=== PATIENT | male | born 1965 | race American Indian/Alaskan Native ===

== ENCOUNTER 2018-05-10 19:44 | Inpatient (IN) | payer OTHER ==
[2018-05-10] MEDS ORDERED: ATIVAN IV ONE (20:52)
[2018-05-10] MEDS ORDERED: NACL 0.9% 1000 ML 1,000 ML IV ONE ×3 (20:52→23:08)
[2018-05-10] MEDS ORDERED: ATIVAN IM ONE (21:00)
[2018-05-10] MEDS ORDERED: HALDOL IM ONE (21:26)
[2018-05-10 21:28] LABS: INR 1.82 (0.87-1.13); Partial Thromboplastin Time 35.9 Sec. (24.2-36.6)
[2018-05-10 21:29] LABS: Hematocrit 20.6 % (35.5-45.6); Hemoglobin 6.4 gm/dl (11.8-15.2); Mean Corpuscular HGB Conc 31 % (32-34); Mean Corpuscular Volume 75 fl (84-94); Platelet Count 147 K/mm3 (140-440); Red Blood Count 2.73 M/mm3 (3.65-5.03)
[2018-05-10] MEDS ORDERED: HALDOL ONE (21:29)
[2018-05-10 21:33] LABS: Mean Corpuscular Hemoglobin 23 pg (28-32); Red Cell Distribution Width 25.4 % (13.2-15.2)
[2018-05-10 21:37] LABS: Alanine Aminotransferase 23 units/L (7-56); Albumin 3.2 g/dL (3.9-5); BUN/Creatinine Ratio 10; Blood Urea Nitrogen 9 mg/dL (9-20); Calcium 8.5 mg/dL (8.4-10.2); Hemolysis Index 0
[2018-05-10 22:15] LABS: Anisocytosis 2+; Hypochromasia 1+; Platelet Estimate Consistent w Auto; Total Cells Counted 100
--- NOTE | 2018-05-10 22:39 | XRay Report ---
FINAL REPORT PROCEDURE: XR CHEST 1V AP TECHNIQUE: Chest radiograph anteroposterior view. CPT 80839 HISTORY: Altered Mental Status COMPARISON: No prior studies are available for comparison. FINDINGS: Heart: Normal. Mediastinum/Vessels: Normal. Lungs/Pleural space: Normal. Bony thorax: No acute osseous abnormality. Life support devices: There are monitoring devices.. IMPRESSION: No acute cardiopulmonary abnormality.
[2018-05-10] MEDS ORDERED: CEPHULAC PO ONE (22:43)
[2018-05-10] MEDS ORDERED: VANCOMYCIN IV ONE (23:09)
[2018-05-10] MEDS ORDERED: NACL 0.9% IV ONE (23:09)
--- NOTE | 2018-05-11 00:23 | Emergency Department Report ---
ED Altered Mental Status HPI - General Chief Complaint: Altered Mental Status Stated Complaint: AMS/ETOH Time Seen by Provider: 05/10/18 20:50 Source: family (girlfriend spoke to nurse by phone), EMS Mode of arrival: Stretcher Limitations: Altered Mental Status - History of Present Illness Initial Comments: Mr. Murray is a 52 yo male with hx of alcholic cirrhosis and polysubstance abuse (cocaine, alcohol) who presents with altered mental status which is new for patient. Last drink of alcohol yesterday. Patient is too altered to give hx. He only repeats the word "no". Girlfriend Sylviaclair Smith [phone] Complaint: altered mental status -: days(s) (1) Severity: severe Consistency of Symptoms: getting worse Context: alcohol abuse - Related Data Allergies Allergy/AdvReac Type Severity Reaction Status Date / Time No Known Allergies Allergy Verified 05/10/18 23:15 ED Review of Systems ROS: Stated complaint: AMS/ETOH Other details as noted in HPI Comment: Unobtainable due to pts medical conditions ED Past Medical Hx - Past Medical History Hx Hypertension: Yes Hx Liver Disease: Yes Additional medical history: hx ETOH - Social History Smoking Status: Unknown if ever smoked Substance Use Type: Alcohol ED Physical Exam - General Limitations: Altered Mental Status General appearance: alert, other (tremulous, appears dazed confused, will make eye contact and repeat the word "no") - Head Head exam: Present: atraumatic, normocephalic - Eye Eye exam: Present: PERRL, scleral icterus Pupils: Present: normal accommodation - ENT ENT exam: Present: mucous membranes dry - Neck Neck exam: Present: normal inspection. Absent: tenderness, meningismus - Respiratory Respiratory exam: Present: normal lung sounds bilaterally. Absent: respiratory distress, wheezes, rales, rhonchi - Cardiovascular Cardiovascular Exam: Present: regular rate, tachycardia, normal heart sounds. Absent: systolic murmur, diastolic murmur - GI/Abdominal GI/Abdominal exam: Present: soft, other (periumbilical surgical scar). Absent: distended, tenderness, guarding, rebound - Neurological Exam Neurological exam: Present: other (confused but awake) - Psychiatric Psychiatric exam: Present: flat affect - Skin Skin exam: Present: other (very warm to touch) ED Course Vital Signs 09/05/10/18 05/10/18 19:56 20:01 20:08 Temperature 98.7 F 98.4 F Pulse Rate 119 H 117 H Respiratory 16 16 Rate Blood Pressure 150/74 Blood Pressure 150/74 [Right] O2 Sat by Pulse 100 100 100 Oximetry 05/10/18 05/10/18 05/10/18 20:13 20:15 20:30 Temperature Pulse Rate 124 H 113 H Respiratory 21 24 20 Rate Blood Pressure 162/67 Blood Pressure [Right] O2 Sat by Pulse 62 L Oximetry 05/10/18 05/10/18 05/10/18 20:45 21:00 21:15 Temperature Pulse Rate 115 H 117 H 131 H Respiratory 16 17 20 Rate Blood Pressure 154/61 169/81 169/81 Blood Pressure [Right] O2 Sat by Pulse 100 100 Oximetry 05/10/18 05/10/18 05/10/18 21:30 21:47 22:01 Temperature Pulse Rate 116 H 98 H 102 H Respiratory 14 11 L 14 Rate Blood Pressure 153/68 153/68 153/68 Blood Pressure [Right] O2 Sat by Pulse Oximetry 05/10/18 05/10/18 05/10/18 22:15 22:31 22:45 Temperature Pulse Rate 106 H 86 84 Respiratory 13 11 L 13 Rate Blood Pressure 153/68 169/81 169/81 Blood Pressure [Right] O2 Sat by Pulse 100 100 100 Oximetry 05/10/18 05/10/18 05/10/18 23:01 23:15 23:31 Temperature Pulse Rate 80 105 H 75 Respiratory 12 13 12 Rate Blood Pressure 169/81 169/81 169/81 Blood Pressure [Right] O2 Sat by Pulse 100 100 100 Oximetry 05/10/18 23:45 Temperature Pulse Rate 80 Respiratory 13 Rate Blood Pressure 169/81 Blood Pressure [Right] O2 Sat by Pulse 100 Oximetry - Lab Data Result diagrams: 05/10/18 21:06 05/10/18 21:06 Lab Results 05/10/18 05/10/18 05/10/18 Range/Units 21:06 21:06 21:06 WBC 4.1 L (4.5-11.0) K/mm3 RBC 2.73 L (3.65-5.03) M/mm3 Hgb 6.4 L (11.8-15.2) gm/dl Hct 20.6 L (35.5-45.6) % MCV 75 L (84-94) fl MCH 23 L (28-32) pg MCHC 31 L (32-34) % RDW 25.4 H (13.2-15.2) % Plt Count 147 (140-440) K/mm3 Lymph % (Auto) Communications Assistant Kinney % (Auto) Communications Assistant Eos % (Auto) Communications Assistant Baso % (Auto) Communications Assistant Lymph # Communications Assistant Kinney # Communications Assistant Eos # Communications Assistant Baso # Communications Assistant Add Manual Diff Complete Total Counted 100 Seg Neutrophils % Communications Assistant Seg Neuts % (Manual) 84.0 H (40.0-70.0) % Band Neutrophils % 0 % Lymphocytes % (Manual) 10.0 L (13.4-35.0) % Reactive Lymphs % (Man) 0 % Monocytes % (Manual) 2.0 (0.0-7.3) % Eosinophils % (Manual) 1.0 (0.0-4.3) % Basophils % (Manual) 2.0 H (0.0-1.8) % Metamyelocytes % 0 % Myelocytes % 1.0 % Promyelocytes % 0 % Blast Cells % 0 % Nucleated RBC % Not Reportable Seg Neutrophils # Communications Assistant Seg Neutrophils # Man 3.4 (1.8-7.7) K/mm3 Band Neutrophils # 0.0 K/mm3 Lymphocytes # (Manual) 0.4 L (1.2-5.4) K/mm3 Abs React Lymphs (Man) 0.0 K/mm3 Monocytes # (Manual) 0.1 (0.0-0.8) K/mm3 Eosinophils # (Manual) 0.0 (0.0-0.4) K/mm3 Basophils # (Manual) 0.1 (0.0-0.1) K/mm3 Metamyelocytes # 0.0 K/mm3 Myelocytes # 0.0 K/mm3 Promyelocytes # 0.0 K/mm3 Blast Cells # 0.0 K/mm3 WBC Morphology Not Reportable Hypersegmented Neuts Not Reportable Hyposegmented Neuts Not Reportable Hypogranular Neuts Not Reportable Smudge Cells Not Reportable Toxic Granulation Not Reportable Toxic Vacuolation Not Reportable Dohle Bodies Not Reportable Pelger-Huet Anomaly Not Reportable Amada Rods Not Reportable Platelet Estimate Consistent w auto Clumped Platelets Not Reportable Plt Clumps, EDTA Not Reportable Large Platelets Not Reportable Giant Platelets Not Reportable Platelet Satelliting Not Reportable Plt Morphology Comment Not Reportable RBC Morphology Not Reportable Dimorphic RBCs Not Reportable Polychromasia Not Reportable Hypochromasia 1+ Poikilocytosis Not Reportable Anisocytosis 2+ Microcytosis Not Reportable Macrocytosis Not Reportable Spherocytes Not Reportable Pappenheimer Bodies Not Reportable Sickle Cells Not Reportable Target Cells Not Reportable Tear Drop Cells Not Reportable Ovalocytes Not Reportable Helmet Cells Not Reportable Rodríguez-Paradis Bodies Not Reportable [place] Rings Not Reportable Elvia Cells Not Reportable Bite Cells Not Reportable Crenated Cell Not Reportable Elliptocytes Not Reportable Acanthocytes (Spur) Not Reportable Rouleaux Not Reportable Hemoglobin C Crystals Not Reportable Schistocytes Not Reportable Malaria parasites Not Reportable Raoul Bodies Not Reportable Hem Pathologist Commnt No PT 21.6 H (12.2-14.9) Sec. INR 1.82 H (0.87-1.13) APTT 35.9 (24.2-36.6) Sec. Sodium 139 (137-145) mmol/L Potassium 3.7 (3.6-5.0) mmol/L Chloride 107.2 H (98-107) mmol/L Carbon Dioxide 17 L (22-30) mmol/L Anion Gap 19 mmol/L BUN 9 (9-20) mg/dL Creatinine 0.9 (0.8-1.5) mg/dL Estimated GFR > 60 ml/min BUN/Creatinine Ratio 10 % Glucose 129 H (75-100) mg/dL Lactic Acid (0.7-2.0) mmol/L Calcium 8.5 (8.4-10.2) mg/dL Total Bilirubin 4.20 H (0.1-1.2) mg/dL AST 55 H (5-40) units/L ALT 23 (7-56) units/L Alkaline Phosphatase 153 H (35-129) units/L Ammonia (25-60) umol/L Total Creatine Kinase 489 H (55-170) units/L Troponin T < 0.010 (0.00-0.029) ng/mL Total Protein 8.7 H (6.3-8.2) g/dL Albumin 3.2 L (3.9-5) g/dL Albumin/Globulin Ratio 0.6 % TSH (0.270-4.200) mlU/mL Salicylates (2.8-20.0) mg/dL Acetaminophen (10.0-30.0) ug/mL Plasma/Serum Alcohol (0-0.07) % 05/10/18 05/10/18 05/10/18 Range/Units 21:06 21:06 21:06 WBC (4.5-11.0) K/mm3 RBC (3.65-5.03) M/mm3 Hgb (11.8-15.2) gm/dl Hct (35.5-45.6) % MCV (84-94) fl MCH (28-32) pg MCHC (32-34) % RDW (13.2-15.2) % Plt Count (140-440) K/mm3 Lymph % (Auto) Kinney % (Auto) Eos % (Auto) Baso % (Auto) Lymph # Kinney # Eos # Baso # Add Manual Diff Total Counted Seg Neutrophils % Seg Neuts % (Manual) (40.0-70.0) % Band Neutrophils % % Lymphocytes % (Manual) (13.4-35.0) % Reactive Lymphs % (Man) % Monocytes % (Manual) (0.0-7.3) % Eosinophils % (Manual) (0.0-4.3) % Basophils % (Manual) (0.0-1.8) % Metamyelocytes % % Myelocytes % % Promyelocytes % % Blast Cells % % Nucleated RBC % Seg Neutrophils # Seg Neutrophils # Man (1.8-7.7) K/mm3 Band Neutrophils # K/mm3 Lymphocytes # (Manual) (1.2-5.4) K/mm3 Abs React Lymphs (Man) K/mm3 Monocytes # (Manual) (0.0-0.8) K/mm3 Eosinophils # (Manual) (0.0-0.4) K/mm3 Basophils # (Manual) (0.0-0.1) K/mm3 Metamyelocytes # K/mm3 Myelocytes # K/mm3 Promyelocytes # K/mm3 Blast Cells # K/mm3 WBC Morphology Hypersegmented Neuts Hyposegmented Neuts Hypogranular Neuts Smudge Cells Toxic Granulation Toxic Vacuolation Dohle Bodies Pelger-Huet Anomaly Amada Rods Platelet Estimate Clumped Platelets Plt Clumps, EDTA Large Platelets Giant Platelets Platelet Satelliting Plt Morphology Comment RBC Morphology Dimorphic RBCs Polychromasia Hypochromasia Poikilocytosis Anisocytosis Microcytosis Macrocytosis Spherocytes Pappenheimer Bodies Sickle Cells Target Cells Tear Drop Cells Ovalocytes Helmet Cells Rodríguez-Paradis Bodies [place] Rings [place] Cells Bite Cells Crenated Cell Elliptocytes Acanthocytes (Spur) Rouleaux Hemoglobin C Crystals Schistocytes Malaria parasites Raoul Bodies Hem Pathologist Commnt PT (12.2-14.9) Sec. INR (0.87-1.13) APTT (24.2-36.6) Sec. Sodium (137-145) mmol/L Potassium (3.6-5.0) mmol/L Chloride (98-107) mmol/L Carbon Dioxide (22-30) mmol/L Anion Gap mmol/L BUN (9-20) mg/dL Creatinine (0.8-1.5) mg/dL Estimated GFR ml/min BUN/Creatinine Ratio % Glucose (75-100) mg/dL Lactic Acid 4.30 H* (0.7-2.0) mmol/L Calcium (8.4-10.2) mg/dL Total Bilirubin (0.1-1.2) mg/dL AST (5-40) units/L ALT (7-56) units/L Alkaline Phosphatase (35-129) units/L Ammonia 204.0 H (25-60) umol/L Total Creatine Kinase (55-170) units/L Troponin T (0.00-0.029) ng/mL Total Protein (6.3-8.2) g/dL Albumin (3.9-5) g/dL Albumin/Globulin Ratio % TSH 2.570 (0.270-4.200) mlU/mL Salicylates (2.8-20.0) mg/dL Acetaminophen (10.0-30.0) ug/mL Plasma/Serum Alcohol (0-0.07) % 05/10/18 05/10/18 05/10/18 Range/Units 21:06 21:06 21:06 WBC (4.5-11.0) K/mm3 RBC (3.65-5.03) M/mm3 Hgb (11.8-15.2) gm/dl Hct (35.5-45.6) % MCV (84-94) fl MCH (28-32) pg MCHC (32-34) % RDW (13.2-15.2) % Plt Count (140-440) K/mm3 Lymph % (Auto) Kinney % (Auto) Eos % (Auto) Baso % (Auto) Lymph # Kinney # Eos # Baso # Add Manual Diff Total Counted Seg Neutrophils % Seg Neuts % (Manual) (40.0-70.0) % Band Neutrophils % % Lymphocytes % (Manual) (13.4-35.0) % Reactive Lymphs % (Man) % Monocytes % (Manual) (0.0-7.3) % Eosinophils % (Manual) (0.0-4.3) % Basophils % (Manual) (0.0-1.8) % Metamyelocytes % % Myelocytes % % Promyelocytes % % Blast Cells % % Nucleated RBC % Seg Neutrophils # Seg Neutrophils # Man (1.8-7.7) K/mm3 Band Neutrophils # K/mm3 Lymphocytes # (Manual) (1.2-5.4) K/mm3 Abs React Lymphs (Man) K/mm3 Monocytes # (Manual) (0.0-0.8) K/mm3 Eosinophils # (Manual) (0.0-0.4) K/mm3 Basophils # (Manual) (0.0-0.1) K/mm3 Metamyelocytes # K/mm3 Myelocytes # K/mm3 Promyelocytes # K/mm3 Blast Cells # K/mm3 WBC Morphology Hypersegmented Neuts Hyposegmented Neuts Hypogranular Neuts Smudge Cells Toxic Granulation Toxic Vacuolation Dohle Bodies Pelger-Huet Anomaly Amada Rods Platelet Estimate Clumped Platelets Plt Clumps, EDTA Large Platelets Giant Platelets Platelet Satelliting Plt Morphology Comment RBC Morphology Dimorphic RBCs Polychromasia Hypochromasia Poikilocytosis Anisocytosis Microcytosis Macrocytosis Spherocytes Pappenheimer Bodies Sickle Cells Target Cells Tear Drop Cells Ovalocytes Helmet Cells Rodríguez-Paradis Bodies [place] Rings [place] Cells Bite Cells Crenated Cell Elliptocytes Acanthocytes (Spur) Rouleaux Hemoglobin C Crystals Schistocytes Malaria parasites Raoul Bodies Hem Pathologist Commnt PT (12.2-14.9) Sec. INR (0.87-1.13) APTT (24.2-36.6) Sec. Sodium (137-145) mmol/L Potassium (3.6-5.0) mmol/L Chloride (98-107) mmol/L Carbon Dioxide (22-30) mmol/L Anion Gap mmol/L BUN (9-20) mg/dL Creatinine (0.8-1.5) mg/dL Estimated GFR ml/min BUN/Creatinine Ratio % Glucose (75-100) mg/dL Lactic Acid (0.7-2.0) mmol/L Calcium (8.4-10.2) mg/dL Total Bilirubin (0.1-1.2) mg/dL AST (5-40) units/L ALT (7-56) units/L Alkaline Phosphatase (35-129) units/L Ammonia (25-60) umol/L Total Creatine Kinase (55-170) units/L Troponin T (0.00-0.029) ng/mL Total Protein (6.3-8.2) g/dL Albumin (3.9-5) g/dL Albumin/Globulin Ratio % TSH (0.270-4.200) mlU/mL Salicylates < 0.3 L (2.8-20.0) mg/dL Acetaminophen < 5.0 L (10.0-30.0) ug/mL Plasma/Serum Alcohol < 0.01 (0-0.07) % 05/10/18 05/10/18 Range/Units 22:09 23:12 WBC (4.5-11.0) K/mm3 RBC (3.65-5.03) M/mm3 Hgb (11.8-15.2) gm/dl Hct (35.5-45.6) % MCV (84-94) fl MCH (28-32) pg MCHC (32-34) % RDW (13.2-15.2) % Plt Count (140-440) K/mm3 Lymph % (Auto) Kinney % (Auto) Eos % (Auto) Baso % (Auto) Lymph # Kinney # Eos # Baso # Add Manual Diff Total Counted Seg Neutrophils % Seg Neuts % (Manual) (40.0-70.0) % Band Neutrophils % % Lymphocytes % (Manual) (13.4-35.0) % Reactive Lymphs % (Man) % Monocytes % (Manual) (0.0-7.3) % Eosinophils % (Manual) (0.0-4.3) % Basophils % (Manual) (0.0-1.8) % Metamyelocytes % % Myelocytes % % Promyelocytes % % Blast Cells % % Nucleated RBC % Seg Neutrophils # Seg Neutrophils # Man (1.8-7.7) K/mm3 Band Neutrophils # K/mm3 Lymphocytes # (Manual) (1.2-5.4) K/mm3 Abs React Lymphs (Man) K/mm3 Monocytes # (Manual) (0.0-0.8) K/mm3 Eosinophils # (Manual) (0.0-0.4) K/mm3 Basophils # (Manual) (0.0-0.1) K/mm3 Metamyelocytes # K/mm3 Myelocytes # K/mm3 Promyelocytes # K/mm3 Blast Cells # K/mm3 WBC Morphology Hypersegmented Neuts Hyposegmented Neuts Hypogranular Neuts Smudge Cells Toxic Granulation Toxic Vacuolation Dohle Bodies Pelger-Huet Anomaly Amada Rods Platelet Estimate Clumped Platelets Plt Clumps, EDTA Large Platelets Giant Platelets Platelet Satelliting Plt Morphology Comment RBC Morphology Dimorphic RBCs Polychromasia Hypochromasia Poikilocytosis Anisocytosis Microcytosis Macrocytosis Spherocytes Pappenheimer Bodies Sickle Cells Target Cells Tear Drop Cells Ovalocytes Helmet Cells Rodríguez-Paradis Bodies [place] Rings Elvia Cells Bite Cells Crenated Cell Elliptocytes Acanthocytes (Spur) Rouleaux Hemoglobin C Crystals Schistocytes Malaria parasites Raoul Bodies Hem Pathologist Commnt PT (12.2-14.9) Sec. INR (0.87-1.13) APTT (24.2-36.6) Sec. Sodium (137-145) mmol/L Potassium (3.6-5.0) mmol/L Chloride (98-107) mmol/L Carbon Dioxide (22-30) mmol/L Anion Gap mmol/L BUN (9-20) mg/dL Creatinine (0.8-1.5) mg/dL Estimated GFR ml/min BUN/Creatinine Ratio % Glucose (75-100) mg/dL Lactic Acid 4.40 H* 2.60 H* (0.7-2.0) mmol/L Calcium (8.4-10.2) mg/dL Total Bilirubin (0.1-1.2) mg/dL AST (5-40) units/L ALT (7-56) units/L Alkaline Phosphatase (35-129) units/L Ammonia (25-60) umol/L Total Creatine Kinase (55-170) units/L Troponin T (0.00-0.029) ng/mL Total Protein (6.3-8.2) g/dL Albumin (3.9-5) g/dL Albumin/Globulin Ratio % TSH (0.270-4.200) mlU/mL Salicylates (2.8-20.0) mg/dL Acetaminophen (10.0-30.0) ug/mL Plasma/Serum Alcohol (0-0.07) % 05/11/18 00:34 Time obtained 2008 Sinus tachycardia rate 120 bpm normal axis normal intervals no ST-T signs ischemia positive LVH - Radiology Data Radiology results: report reviewed CT head without acute process Portable chest x-ray without acute process - Medical Decision Making Acute hepatic encephalopathy and alcohol withdrawal admitted in fair condition. Elevated lactate without elevated white count, however pancytopenia is to be expected with alcohol cirrhosis. Did cover for possible sepsis with appropriate IV fluid therapy and broad-spectrum antibiotics, no notable tenderness or significant ascites to suggest peritonitis Critical Care Time: Yes Critical care time in (mins) excluding proc time.: 40 Critical care attestation.: If time is entered above; I have spent that time in minutes in the direct care of this critically ill patient, excluding procedure time. 40 minutes of critical care time excluding procedures were used in the care of the patient. Patient required multiple assessments and interventions. I reviewed the electronic medical record, labs and imaging. ED Disposition Clinical Impression: Hepatic encephalopathy, Alcoholic cirrhosis, Alcohol withdrawal, Lactic acid acidosis, Cocaine abuse Disposition: OP ADMIT IP TO THIS HOSP Is pt being admited?: No Does the pt Need Aspirin: No Condition: Stable
[2018-05-11] MEDS ORDERED: ATIVAN IV PRN ×3 (00:29)
[2018-05-11] MEDS ORDERED: VITAMIN B-1 100 MG, FOLVITE 1 MG, INFUVITE 10 ML in NACL 0.9% 1000 ML 1,000 ML IV ONE (00:31)
[2018-05-11] MEDS ORDERED: ZOFRAN IV PRN (00:32)
[2018-05-11] MEDS ORDERED: NACL 0.9% 500 ML 500 ML IV ONE (00:33)
[2018-05-11] MEDS: MAXIPIME/NS 2 GM/100 ML 2 GM/100 ML BAG IV SCH ×4 (01:14→21:48)
[2018-05-11] MEDS ORDERED: CEPHULAC ONE (01:24)
--- NOTE | 2018-05-11 02:03 | Cat Scan Report ---
FINAL REPORT EXAM: CT HEAD/BRAIN WO CON HISTORY: Altered Mental Status TECHNIQUE: Routine axial imaging was obtained of the brain without IV contrast FINDINGS: There is mild generalized volume loss. There is localized encephalomalacia in the right frontal lobe. There is no evidence of acute stroke or hemorrhage. The ventricular system is appropriate in size and is symmetric. The sinuses reveal mucosal thickening in the left maxillary sinus. The mastoid air cells are well pneumatized. The calvarium appears intact IMPRESSION: Mild generalized atrophy with encephalomalacia in the right frontal lobe. No evidence of acute stroke or hemorrhage. Mucosal thickening in the left maxillary sinus.
[2018-05-11 04:08] LABS: Bilirubin,Urine NEG (Negative); Blood,Urine SM (Negative); Color,Urine Yellow (Yellow); Protein,Urine <15 mg/dL mg/dL (Negative)
[2018-05-11 04:16] LABS: Amphetamine Screen,Urine PRESUMPTIVE NEGATIVE; Benzodiazepines Screen,Urine PRESUMPTIVE NEGATIVE; Cannabinoid Screen,Urine PRESUMPTIVE NEGATIVE; Cocaine Screen,Urine PRESUMPTIVE NEGATIVE; Methadone Screen,Urine PRESUMPTIVE NEGATIVE; Opiate Screen,Urine PRESUMPTIVE NEGATIVE
--- NOTE | 2018-05-11 04:35 | History and Physical Report ---
CHIEF COMPLAINT: Altered mental status. HISTORY OF PRESENT ILLNESS: The patient is a 52-year-old male with history of alcoholic cirrhosis and polysubstance abuse, notably cocaine and alcohol, presenting with altered mental status and the patient said he had last alcohol drink 3 days before presentation. The patient could not give good history because of change in mental status. There was no history of chest pain, shortness of breath, nausea, or vomiting. PAST MEDICAL HISTORY: Pertinent for hypertension, liver disease, alcohol abuse. PAST SURGICAL HISTORY: Unremarkable. FAMILY HISTORY: Family history is noncontributory. SOCIAL HISTORY: The patient drinks alcohol, does not smoke and uses illicit drugs, notably cocaine. MEDICATIONS: The patient's home medications are not known at this time. ALLERGIES: There are no known drug allergies. REVIEW OF SYSTEMS: CONSTITUTIONAL: There is no fever, no chills, no diaphoresis. HEENT: There is no headache or sore throat. CARDIOVASCULAR SYSTEM: There is no chest pain or orthopnea. RESPIRATORY: There is no shortness of breath or cough. GASTROINTESTINAL SYSTEM: There is no nausea, no vomiting, no abdominal pain, diarrhea, or constipation. NEUROLOGIC: Change in mental status noted. MUSCULOSKELETAL SYSTEM: There is no joint pain or swelling. DERMATOLOGICAL SYSTEM: There is no skin rash or itching. GENITOURINARY SYSTEM: There is no dysuria, hematuria, or flank pain. Rest of system review is normal. PHYSICAL EXAMINATION: GENERAL: At the time of exam, the patient was found to be lethargic, arousable, and not in acute distress. VITAL SIGNS: At the initial time of presentation shows temperature of 98.7 degrees Fahrenheit, pulse of 119, respiration 16, blood pressure 150/74, O2 sat of 100% on room air. HEENT: Showed pupils to be equal, round, reactive to light and accommodating. There is presence of scleral jaundice. Oral mucosa looks moist. NECK: Neck is supple with no JVD or carotid bruit. CARDIOVASCULAR SYSTEM: Showed normal first and second heart sounds with no gallops or murmurs. RESPIRATORY SYSTEM: Show good air entry on both sides of the lungs with no abnormal breath sounds. GASTROINTESTINAL SYSTEM: Show abdomen to be full, soft, nontender with no organomegaly or rigidity. NEUROLOGIC: Showed patient to be lethargic, but arousable with no focal deficit elicited. MUSCULOSKELETAL SYSTEM: Show no joint swelling or tenderness. DERMATOLOGICAL SYSTEM: Show no skin rash. GENITOURINARY: Showing no costovertebral angle tenderness. PERTINENT LABORATORY DATA AND IMAGING STUDIES: The patient had a CT of the head without contrast done that shows mild generalized atrophy with encephalomalacia in the right frontal lobe with no evidence of acute stroke or hemorrhage. There is finding of mucosal thickening in the left maxillary sinus. Also, the patient had chest x-ray done that shows no acute cardiopulmonary abnormality. Lab results, patient has CBC done that shows a low WBC of 4.1 with low hemoglobin of 6.4 and low hematocrit of 20.6 with low MCV of 75. The patient's CBC differential shows elevated segmented neutrophil of 84. The patient's coagulation studies show high PT of 21.6 with high INR of 1.82. It is not certain whether patient is on Coumadin since patient's home medications cannot be ascertained. The patient's chemistry shows normal sodium and potassium with high chloride of 107 and low CO2 of 17 with high lactic acid level of 2.4. The patient's total bilirubin level is high with a value of 4.2. Liver transaminases show high AST of 55 with normal ALT of 23 consistent with alcohol abuse. The patient's ammonia level is high with a value of 204 and total creatinine kinase level is high with a value of 489. Troponin level was normal. Toxicology screen showed normal salicylate and Tylenol level with unremarkable alcohol level. DIAGNOSES: 1. Altered mental status. 2. Hepatic encephalopathy. 3. Alcohol withdrawal syndrome. 4. Anemia. 5. Lactic acidosis. PLAN: 1. The patient will be admitted to medical floor on telemetry. 2. The patient will have blood order for type and screen and a transfusion of 2 units of packed red blood after typing and screening. 3. The patient will have hemoglobin and hematocrit checked q. 6 hours x 2 more levels and will have lactic acid level checked q. 4 hours x 2 more levels. 4. The patient will have ammonia level checked this morning. 5. The patient will be on CIWA protocol using IV Ativan. 6. The patient will be on lactulose 20 gm by mouth twice daily. 7. The patient will be on IV banana bag given 1 time and will be on IV Zofran 4 mg every 8 hours as needed for nausea and vomiting. 8. The patient's home medications will be started when they are known and reconciled. 9. The patient will have a Gastroenterology consult with [facility] for management of cirrhosis and hepatic encephalopathy. JOB# [id number] OCN/NTS
--- NOTE | 2018-05-11 08:09 | Event Note ---
Date: 05/11/18 Patient seen and evaluated ,medical records reviewed. Admitted with hepatic encephalopathy,severe cirrhosis, polysubstance abuse ,coagulopathy and sever anemia. Advised to transfuse 2 units PRBC,GI evaluation CIWA protocols. Agree with the current management. f/u GI evaluation and recommendations. Patient needs Alcohol and drug rehabilitation when medically stable Plan of care d/w at the bed side.
[2018-05-11] MEDS ORDERED: LASIX IV ONE (08:14)
[2018-05-11 09:40] LABS: Lipase 94 units/L (13-60)
--- NOTE | 2018-05-11 09:59 | Gastroenterology Consultation ---
History of Present Illness - Reason for Consult Consult date: 05/11/18 cirrhosis, hepatic encephalopathy Requesting physician: HARINDER GARCIA - History of Present Illness Patient is a 52 y/o male with PMH of HTN, alcoholic cirrhosis and polypsubstance abuse (cocaine, alcohol) who presented to ED with AMS. CT head negative for acute process. Upon admission, ammonia level was found to be elevated and he was admitted for hepatic encephalopathy to which GI has been consulted. This morning patient was resting in bed w/o acute distress but noted to be lethargic and unable to provide history. No family at bedside. History obtained via chart review. According to chart review, his last drink of alcohol was yesterday. Amount of daily consumption is unknown. No evidence of abd distention, abd pain, or N/V. No BM today or active signs of bleeding per nursing. NG tube to LIS w/o drainage. Past History Past Medical History: hypertension, liver disease (alcoholic cirrhosis) Past Surgical History: Other (unknown) Social history: alcohol abuse, other (substance abuse (cocaine)) Medications and Allergies Allergies Allergy/AdvReac Type Severity Reaction Status Date / Time No Known Allergies Allergy Verified 05/10/18 23:15 Home Medications Medication Instructions Recorded Confirmed Last Taken Type No Known Home Medications [No 05/11/18 05/11/18 Unknown History Reported Home Medications] Active Meds: Active Medications Cefepime HCl (Maxipime/Ns 2 Gm/100 Ml) 2 gm in 100 mls @ 200 mls/hr IV Q8HR RYDER ; Protocol Last Admin: 05/11/18 07:19 Dose: 200 mls/hr Lactulose (Cephulac) 20 gm PO BID RYDER Lorazepam (Ativan) 2 mg IV Q1HR PRN PRN Reason: CIWA-Ar 8-15 Lorazepam (Ativan) 4 mg IV Q1HR PRN PRN Reason: CIWA-Ar 16-25 Last Admin: 05/11/18 02:51 Dose: 4 mg Lorazepam (Ativan) 4 mg IV Q15MIN PRN PRN Reason: CIWA-Ar >25 Ondansetron HCl (Zofran) 4 mg IV Q8H PRN PRN Reason: Nausea And Vomiting Review of Systems - Review of Systems ROS unobtainable: due to mental status Exam - Constitutional Vital Signs: Temp Pulse Resp BP Pulse Ox 98.1 F 121 H 18 151/79 100 05/11/18 08:00 05/11/18 08:00 05/11/18 08:00 05/11/18 08:00 05/11/18 08:00 General appearance: no acute distress, other (lethargic) - Respiratory Respiratory: bilateral: CTA (anterior) - Cardiovascular Rhythm: other (tachycardia) - Gastrointestinal General gastrointestinal: Present: soft, non-distended, normal bowel sounds - Neurologic Neurological: other (confused) - Labs CBC & Chem 7: 05/10/18 21:06 05/10/18 21:06 Lab Results: Laboratory Results - last 24 hr 05/10/18 05/10/18 05/10/18 21:06 21:06 21:06 WBC 4.1 L RBC 2.73 L Hgb 6.4 L Hct 20.6 L MCV 75 L MCH 23 L MCHC 31 L RDW 25.4 H Plt Count 147 Lymph % (Auto) Public Weigher [place] % (Auto) Public Weigher Eos % (Auto) Public Weigher Baso % (Auto) Public Weigher Lymph # Public Weigher [place] # Public Weigher Eos # Public Weigher Baso # Public Weigher Add Manual Diff Complete Total Counted 100 Seg Neutrophils % Public Weigher Seg Neuts % (Manual) 84.0 H Band Neutrophils % 0 Lymphocytes % (Manual) 10.0 L Reactive Lymphs % (Man) 0 Monocytes % (Manual) 2.0 Eosinophils % (Manual) 1.0 Basophils % (Manual) 2.0 H Metamyelocytes % 0 Myelocytes % 1.0 Promyelocytes % 0 Blast Cells % 0 Nucleated RBC % Not Reportable Seg Neutrophils # Public Weigher Seg Neutrophils # Man 3.4 Band Neutrophils # 0.0 Lymphocytes # (Manual) 0.4 L Abs React Lymphs (Man) 0.0 Monocytes # (Manual) 0.1 Eosinophils # (Manual) 0.0 Basophils # (Manual) 0.1 Metamyelocytes # 0.0 Myelocytes # 0.0 Promyelocytes # 0.0 Blast Cells # 0.0 WBC Morphology Not Reportable Hypersegmented Neuts Not Reportable Hyposegmented Neuts Not Reportable Hypogranular Neuts Not Reportable Smudge Cells Not Reportable Toxic Granulation Not Reportable Toxic Vacuolation Not Reportable Dohle Bodies Not Reportable Pelger-Huet Anomaly Not Reportable Amada Rods Not Reportable Platelet Estimate Consistent w auto Clumped Platelets Not Reportable Plt Clumps, EDTA Not Reportable Large Platelets Not Reportable Giant Platelets Not Reportable Platelet Satelliting Not Reportable Plt Morphology Comment Not Reportable RBC Morphology Not Reportable Dimorphic RBCs Not Reportable Polychromasia Not Reportable Hypochromasia 1+ Poikilocytosis Not Reportable Anisocytosis 2+ Microcytosis Not Reportable Macrocytosis Not Reportable Spherocytes Not Reportable Pappenheimer Bodies Not Reportable Sickle Cells Not Reportable Target Cells Not Reportable Tear Drop Cells Not Reportable Ovalocytes Not Reportable Helmet Cells Not Reportable Rodríguez-Phillips Bodies Not Reportable [place] Rings Not Reportable Elvia Cells Not Reportable Bite Cells Not Reportable Crenated Cell Not Reportable Elliptocytes Not Reportable Acanthocytes (Spur) Not Reportable Rouleaux Not Reportable Hemoglobin C Crystals Not Reportable Schistocytes Not Reportable Malaria parasites Not Reportable Raoul Bodies Not Reportable Hem Pathologist Commnt No PT 21.6 H INR 1.82 H APTT 35.9 Sodium 139 Potassium 3.7 Chloride 107.2 H Carbon Dioxide 17 L Anion Gap 19 BUN 9 Creatinine 0.9 Estimated GFR > 60 BUN/Creatinine Ratio 10 Glucose 129 H POC Glucose Lactic Acid Calcium 8.5 Total Bilirubin 4.20 H AST 55 H ALT 23 Alkaline Phosphatase 153 H Ammonia Total Creatine Kinase 489 H Troponin T < 0.010 Total Protein 8.7 H Albumin 3.2 L Albumin/Globulin Ratio 0.6 Amylase Lipase TSH Urine Color Urine Turbidity Urine pH Ur Specific Jackson Urine Protein Urine Glucose (UA) Urine Ketones Urine Blood Urine Nitrite Urine Bilirubin Urine Urobilinogen Ur Leukocyte Esterase Urine WBC (Auto) Urine RBC (Auto) U Epithel Cells (Auto) Salicylates Urine Opiates Screen Urine Methadone Screen Acetaminophen Ur Barbiturates Screen Ur Phencyclidine Scrn Ur Amphetamines Screen U Benzodiazepines Scrn Urine Cocaine Screen U Marijuana (THC) Screen Drugs of Abuse Note Plasma/Serum Alcohol Blood Type Antibody Screen Crossmatch 05/10/18 05/10/18 05/10/18 21:06 21:06 21:06 WBC RBC Hgb Hct MCV MCH MCHC RDW Plt Count Lymph % (Auto) [place] % (Auto) Eos % (Auto) Baso % (Auto) Lymph # [place] # Eos # Baso # Add Manual Diff Total Counted Seg Neutrophils % Seg Neuts % (Manual) Band Neutrophils % Lymphocytes % (Manual) Reactive Lymphs % (Man) Monocytes % (Manual) Eosinophils % (Manual) Basophils % (Manual) Metamyelocytes % Myelocytes % Promyelocytes % Blast Cells % Nucleated RBC % Seg Neutrophils # Seg Neutrophils # Man Band Neutrophils # Lymphocytes # (Manual) Abs React Lymphs (Man) Monocytes # (Manual) Eosinophils # (Manual) Basophils # (Manual) Metamyelocytes # Myelocytes # Promyelocytes # Blast Cells # WBC Morphology Hypersegmented Neuts Hyposegmented Neuts Hypogranular Neuts Smudge Cells Toxic Granulation Toxic Vacuolation Dohle Bodies Pelger-Huet Anomaly Amada Rods Platelet Estimate Clumped Platelets Plt Clumps, EDTA Large Platelets Giant Platelets Platelet Satelliting Plt Morphology Comment RBC Morphology Dimorphic RBCs Polychromasia Hypochromasia Poikilocytosis Anisocytosis Microcytosis Macrocytosis Spherocytes Pappenheimer Bodies Sickle Cells Target Cells Tear Drop Cells Ovalocytes Helmet Cells Rodríguez-Phillips Bodies [place] Rings Elvia Cells Bite Cells Crenated Cell Elliptocytes Acanthocytes (Spur) Rouleaux Hemoglobin C Crystals Schistocytes Malaria parasites Raoul Bodies Hem Pathologist Commnt PT INR APTT Sodium Potassium Chloride Carbon Dioxide Anion Gap BUN Creatinine Estimated GFR BUN/Creatinine Ratio Glucose POC Glucose Lactic Acid 4.30 H* Calcium Total Bilirubin AST ALT Alkaline Phosphatase Ammonia 204.0 H Total Creatine Kinase Troponin T Total Protein Albumin Albumin/Globulin Ratio Amylase Lipase TSH 2.570 Urine Color Urine Turbidity Urine pH Ur Specific Jackson Urine Protein Urine Glucose (UA) Urine Ketones Urine Blood Urine Nitrite Urine Bilirubin Urine Urobilinogen Ur Leukocyte Esterase Urine WBC (Auto) Urine RBC (Auto) U Epithel Cells (Auto) Salicylates Urine Opiates Screen Urine Methadone Screen Acetaminophen Ur Barbiturates Screen Ur Phencyclidine Scrn Ur Amphetamines Screen U Benzodiazepines Scrn Urine Cocaine Screen U Marijuana (THC) Screen Drugs of Abuse Note Plasma/Serum Alcohol Blood Type Antibody Screen Crossmatch 05/10/18 05/10/18 05/10/18 21:06 21:06 21:06 WBC RBC Hgb Hct MCV MCH MCHC RDW Plt Count Lymph % (Auto) [place] % (Auto) Eos % (Auto) Baso % (Auto) Lymph # [place] # Eos # Baso # Add Manual Diff Total Counted Seg Neutrophils % Seg Neuts % (Manual) Band Neutrophils % Lymphocytes % (Manual) Reactive Lymphs % (Man) Monocytes % (Manual) Eosinophils % (Manual) Basophils % (Manual) Metamyelocytes % Myelocytes % Promyelocytes % Blast Cells % Nucleated RBC % Seg Neutrophils # Seg Neutrophils # Man Band Neutrophils # Lymphocytes # (Manual) Abs React Lymphs (Man) Monocytes # (Manual) Eosinophils # (Manual) Basophils # (Manual) Metamyelocytes # Myelocytes # Promyelocytes # Blast Cells # WBC Morphology Hypersegmented Neuts Hyposegmented Neuts Hypogranular Neuts Smudge Cells Toxic Granulation Toxic Vacuolation Dohle Bodies Pelger-Huet Anomaly Amada Rods Platelet Estimate Clumped Platelets Plt Clumps, EDTA Large Platelets Giant Platelets Platelet Satelliting Plt Morphology Comment RBC Morphology Dimorphic RBCs Polychromasia Hypochromasia Poikilocytosis Anisocytosis Microcytosis Macrocytosis Spherocytes Pappenheimer Bodies Sickle Cells Target Cells Tear Drop Cells Ovalocytes Helmet Cells Rodríguez-Phillips Bodies [place] Rings Elvia Cells Bite Cells Crenated Cell Elliptocytes Acanthocytes (Spur) Rouleaux Hemoglobin C Crystals Schistocytes Malaria parasites Raoul Bodies Hem Pathologist Commnt PT INR APTT Sodium Potassium Chloride Carbon Dioxide Anion Gap BUN Creatinine Estimated GFR BUN/Creatinine Ratio Glucose POC Glucose Lactic Acid Calcium Total Bilirubin AST ALT Alkaline Phosphatase Ammonia Total Creatine Kinase Troponin T Total Protein Albumin Albumin/Globulin Ratio Amylase Lipase TSH Urine Color Urine Turbidity Urine pH Ur Specific Jackson Urine Protein Urine Glucose (UA) Urine Ketones Urine Blood Urine Nitrite Urine Bilirubin Urine Urobilinogen Ur Leukocyte Esterase Urine WBC (Auto) Urine RBC (Auto) U Epithel Cells (Auto) Salicylates < 0.3 L Urine Opiates Screen Urine Methadone Screen Acetaminophen < 5.0 L Ur Barbiturates Screen Ur Phencyclidine Scrn Ur Amphetamines Screen U Benzodiazepines Scrn Urine Cocaine Screen U Marijuana (THC) Screen Drugs of Abuse Note Plasma/Serum Alcohol < 0.01 Blood Type Antibody Screen Crossmatch 05/10/18 05/10/18 05/10/18 22:09 23:12 23:52 WBC RBC Hgb Hct MCV MCH MCHC RDW Plt Count Lymph % (Auto) [place] % (Auto) Eos % (Auto) Baso % (Auto) Lymph # [place] # Eos # Baso # Add Manual Diff Total Counted Seg Neutrophils % Seg Neuts % (Manual) Band Neutrophils % Lymphocytes % (Manual) Reactive Lymphs % (Man) Monocytes % (Manual) Eosinophils % (Manual) Basophils % (Manual) Metamyelocytes % Myelocytes % Promyelocytes % Blast Cells % Nucleated RBC % Seg Neutrophils # Seg Neutrophils # Man Band Neutrophils # Lymphocytes # (Manual) Abs React Lymphs (Man) Monocytes # (Manual) Eosinophils # (Manual) Basophils # (Manual) Metamyelocytes # Myelocytes # Promyelocytes # Blast Cells # WBC Morphology Hypersegmented Neuts Hyposegmented Neuts Hypogranular Neuts Smudge Cells Toxic Granulation Toxic Vacuolation Dohle Bodies Pelger-Huet Anomaly Amada Rods Platelet Estimate Clumped Platelets Plt Clumps, EDTA Large Platelets Giant Platelets Platelet Satelliting Plt Morphology Comment RBC Morphology Dimorphic RBCs Polychromasia Hypochromasia Poikilocytosis Anisocytosis Microcytosis Macrocytosis Spherocytes Pappenheimer Bodies Sickle Cells Target Cells Tear Drop Cells Ovalocytes Helmet Cells Rodríguez-Phillips Bodies [place] Rings [place] Cells Bite Cells Crenated Cell Elliptocytes Acanthocytes (Spur) Rouleaux Hemoglobin C Crystals Schistocytes Malaria parasites Raoul Bodies Hem Pathologist Commnt PT INR APTT Sodium Potassium Chloride Carbon Dioxide Anion Gap BUN Creatinine Estimated GFR BUN/Creatinine Ratio Glucose POC Glucose Lactic Acid 4.40 H* 2.60 H* 2.40 H* Calcium Total Bilirubin AST ALT Alkaline Phosphatase Ammonia Total Creatine Kinase Troponin T Total Protein Albumin Albumin/Globulin Ratio Amylase Lipase TSH Urine Color Urine Turbidity Urine pH Ur Specific Jackson Urine Protein Urine Glucose (UA) Urine Ketones Urine Blood Urine Nitrite Urine Bilirubin Urine Urobilinogen Ur Leukocyte Esterase Urine WBC (Auto) Urine RBC (Auto) U Epithel Cells (Auto) Salicylates Urine Opiates Screen Urine Methadone Screen Acetaminophen Ur Barbiturates Screen Ur Phencyclidine Scrn Ur Amphetamines Screen U Benzodiazepines Scrn Urine Cocaine Screen U Marijuana (THC) Screen Drugs of Abuse Note Plasma/Serum Alcohol Blood Type Antibody Screen Crossmatch 05/11/18 05/11/18 05/11/18 00:51 00:54 01:25 WBC RBC Hgb Hct MCV MCH MCHC RDW Plt Count Lymph % (Auto) [place] % (Auto) Eos % (Auto) Baso % (Auto) Lymph # [place] # Eos # Baso # Add Manual Diff Total Counted Seg Neutrophils % Seg Neuts % (Manual) Band Neutrophils % Lymphocytes % (Manual) Reactive Lymphs % (Man) Monocytes % (Manual) Eosinophils % (Manual) Basophils % (Manual) Metamyelocytes % Myelocytes % Promyelocytes % Blast Cells % Nucleated RBC % Seg Neutrophils # Seg Neutrophils # Man Band Neutrophils # Lymphocytes # (Manual) Abs React Lymphs (Man) Monocytes # (Manual) Eosinophils # (Manual) Basophils # (Manual) Metamyelocytes # Myelocytes # Promyelocytes # Blast Cells # WBC Morphology Hypersegmented Neuts Hyposegmented Neuts Hypogranular Neuts Smudge Cells Toxic Granulation Toxic Vacuolation Dohle Bodies Pelger-Huet Anomaly Amada Rods Platelet Estimate Clumped Platelets Plt Clumps, EDTA Large Platelets Giant Platelets Platelet Satelliting Plt Morphology Comment RBC Morphology Dimorphic RBCs Polychromasia Hypochromasia Poikilocytosis Anisocytosis Microcytosis Macrocytosis Spherocytes Pappenheimer Bodies Sickle Cells Target Cells Tear Drop Cells Ovalocytes Helmet Cells Rodríguez-Phillips Bodies [place] Rings Elvia Cells Bite Cells Crenated Cell Elliptocytes Acanthocytes (Spur) Rouleaux Hemoglobin C Crystals Schistocytes Malaria parasites Raoul Bodies Hem Pathologist Commnt PT INR APTT Sodium Potassium Chloride Carbon Dioxide Anion Gap BUN Creatinine Estimated GFR BUN/Creatinine Ratio Glucose POC Glucose Lactic Acid 3.50 H* Calcium Total Bilirubin AST ALT Alkaline Phosphatase Ammonia Total Creatine Kinase Troponin T Total Protein Albumin Albumin/Globulin Ratio Amylase Lipase TSH Urine Color Yellow Urine Turbidity Clear Urine pH 7.0 Ur Specific Jackson 1.019 Urine Protein <15 mg/dl Urine Glucose (UA) Neg Urine Ketones Tr Urine Blood Sm Urine Nitrite Neg Urine Bilirubin Neg Urine Urobilinogen 2.0 Ur Leukocyte Esterase Neg Urine WBC (Auto) 4.0 Urine RBC (Auto) 3.0 U Epithel Cells (Auto) 1.0 Salicylates Urine Opiates Screen Urine Methadone Screen Acetaminophen Ur Barbiturates Screen Ur Phencyclidine Scrn Ur Amphetamines Screen U Benzodiazepines Scrn Urine Cocaine Screen U Marijuana (THC) Screen Drugs of Abuse Note Plasma/Serum Alcohol Blood Type B POSITIVE Antibody Screen Negative Crossmatch See Detail 05/11/18 05/11/18 05/11/18 01:25 02:04 06:27 WBC RBC Hgb Hct MCV MCH MCHC RDW Plt Count Lymph % (Auto) [place] % (Auto) Eos % (Auto) Baso % (Auto) Lymph # [place] # Eos # Baso # Add Manual Diff Total Counted Seg Neutrophils % Seg Neuts % (Manual) Band Neutrophils % Lymphocytes % (Manual) Reactive Lymphs % (Man) Monocytes % (Manual) Eosinophils % (Manual) Basophils % (Manual) Metamyelocytes % Myelocytes % Promyelocytes % Blast Cells % Nucleated RBC % Seg Neutrophils # Seg Neutrophils # Man Band Neutrophils # Lymphocytes # (Manual) Abs React Lymphs (Man) Monocytes # (Manual) Eosinophils # (Manual) Basophils # (Manual) Metamyelocytes # Myelocytes # Promyelocytes # Blast Cells # WBC Morphology Hypersegmented Neuts Hyposegmented Neuts Hypogranular Neuts Smudge Cells Toxic Granulation Toxic Vacuolation Dohle Bodies Pelger-Huet Anomaly Amada Rods Platelet Estimate Clumped Platelets Plt Clumps, EDTA Large Platelets Giant Platelets Platelet Satelliting Plt Morphology Comment RBC Morphology Dimorphic RBCs Polychromasia Hypochromasia Poikilocytosis Anisocytosis Microcytosis Macrocytosis Spherocytes Pappenheimer Bodies Sickle Cells Target Cells Tear Drop Cells Ovalocytes Helmet Cells Rodríguez-Phillips Bodies [place] Rings Elvia Cells Bite Cells Crenated Cell Elliptocytes Acanthocytes (Spur) Rouleaux Hemoglobin C Crystals Schistocytes Malaria parasites Raoul Bodies Hem Pathologist Commnt PT INR APTT Sodium Potassium Chloride Carbon Dioxide Anion Gap BUN Creatinine Estimated GFR BUN/Creatinine Ratio Glucose POC Glucose 99 Lactic Acid 2.00 Calcium Total Bilirubin AST ALT Alkaline Phosphatase Ammonia Total Creatine Kinase Troponin T Total Protein Albumin Albumin/Globulin Ratio Amylase Lipase TSH Urine Color Urine Turbidity Urine pH Ur Specific [place] Urine Protein Urine Glucose (UA) Urine Ketones Urine Blood Urine Nitrite Urine Bilirubin Urine Urobilinogen Ur Leukocyte Esterase Urine WBC (Auto) Urine RBC (Auto) U Epithel Cells (Auto) Salicylates Urine Opiates Screen Presumptive negative Urine Methadone Screen Presumptive negative Acetaminophen Ur Barbiturates Screen Presumptive negative Ur Phencyclidine Scrn Presumptive negative Ur Amphetamines Screen Presumptive negative U Benzodiazepines Scrn Presumptive negative Urine Cocaine Screen Presumptive negative U Marijuana (THC) Screen Presumptive negative Drugs of Abuse Note Disclamer Plasma/Serum Alcohol Blood Type Antibody Screen Crossmatch 05/11/18 05/11/18 05/11/18 06:27 09:13 09:13 WBC RBC Hgb Hct MCV MCH MCHC RDW Plt Count Lymph % (Auto) [place] % (Auto) Eos % (Auto) Baso % (Auto) Lymph # [place] # Eos # Baso # Add Manual Diff Total Counted Seg Neutrophils % Seg Neuts % (Manual) Band Neutrophils % Lymphocytes % (Manual) Reactive Lymphs % (Man) Monocytes % (Manual) Eosinophils % (Manual) Basophils % (Manual) Metamyelocytes % Myelocytes % Promyelocytes % Blast Cells % Nucleated RBC % Seg Neutrophils # Seg Neutrophils # Man Band Neutrophils # Lymphocytes # (Manual) Abs React Lymphs (Man) Monocytes # (Manual) Eosinophils # (Manual) Basophils # (Manual) Metamyelocytes # Myelocytes # Promyelocytes # Blast Cells # WBC Morphology Hypersegmented Neuts Hyposegmented Neuts Hypogranular Neuts Smudge Cells Toxic Granulation Toxic Vacuolation Dohle Bodies Pelger-Huet Anomaly Amada Rods Platelet Estimate Clumped Platelets Plt Clumps, EDTA Large Platelets Giant Platelets Platelet Satelliting Plt Morphology Comment RBC Morphology Dimorphic RBCs Polychromasia Hypochromasia Poikilocytosis Anisocytosis Microcytosis Macrocytosis Spherocytes Pappenheimer Bodies Sickle Cells Target Cells Tear Drop Cells Ovalocytes Helmet Cells Rodríguez-Phillips Bodies [place] Rings Elvia Cells Bite Cells Crenated Cell Elliptocytes Acanthocytes (Spur) Rouleaux Hemoglobin C Crystals Schistocytes Malaria parasites Raoul Bodies Hem Pathologist Commnt PT INR APTT Sodium Potassium Chloride Carbon Dioxide Anion Gap BUN Creatinine Estimated GFR BUN/Creatinine Ratio Glucose POC Glucose Lactic Acid 1.70 Calcium Total Bilirubin AST ALT Alkaline Phosphatase Ammonia 128.0 H Total Creatine Kinase Troponin T Total Protein Albumin Albumin/Globulin Ratio Amylase 101 Lipase 94 H TSH Urine Color Urine Turbidity Urine pH Ur Specific Jackson Urine Protein Urine Glucose (UA) Urine Ketones Urine Blood Urine Nitrite Urine Bilirubin Urine Urobilinogen Ur Leukocyte Esterase Urine WBC (Auto) Urine RBC (Auto) U Epithel Cells (Auto) Salicylates Urine Opiates Screen Urine Methadone Screen Acetaminophen Ur Barbiturates Screen Ur Phencyclidine Scrn Ur Amphetamines Screen U Benzodiazepines Scrn Urine Cocaine Screen U Marijuana (THC) Screen Drugs of Abuse Note Plasma/Serum Alcohol Blood Type Antibody Screen Crossmatch Assessment and Plan 1.alcoholic cirrhosis 2.hepatic encephalopathy 3.ETOH abuse -afebrile -WBC 4.1 -H/H 6.4/20.6 (no active signs of bleeding) -continue to monitor H/H and transfuse as needed -plt 147, INR 1.82 -T.adrianna 4.20, AST 55, ALT 23, alk phos 153 -ammonia 204 => 128 -etiology- hx of cirrhosis 2/2 alcohol (actively drinking alcohol- last drink yesterday per family) -clinically, patient remains lethargic w/o signs of bleeding. No BM today -will order abd U/S -continue lactulose (goal of 2-3 BMs/day) -start on xifaxan -limit sedatives -alcohol cessation -continue to trend labs and supportive care -electrolyte management per primary team -will follow
[2018-05-11] MEDS ORDERED: CEPHULAC PO SCH (10:00)
[2018-05-11] MEDS: CEPHULAC PO SCH ×3 (11:20→23:37)
--- NOTE | 2018-05-11 13:59 | Ultrasound Report ---
ULTRASOUND ABDOMEN COMPLETE: TECHNIQUE: Transabdominal ultrasound with color Doppler interrogation. HISTORY: Elevated liver function tests, cirrhosis. COMPARISON: none. FINDINGS: LIVER: The liver parenchyma is echogenic consistent with fatty infiltration. No obvious liver mass. There may be mild surface nodularity consistent with cirrhosis. An echogenic linear structure in the right hepatic lobe is identified which may represent a TIPS shunt. BILIARY SYSTEM: Multiple shadowing gallstones are identified in the gallbladder. No evidence for abnormal dilatation, wall thickening or surrounding fluid. The CBD measures 3 mm. PANCREAS: Obscured by bowel gas. SPLEEN: Within normal limits. 8 cm in length. KIDNEYS: Normal. AORTA/IVC: Normal. ASCITES: None. IMPRESSION: Mild cirrhosis and fatty infiltration of the liver. Cholelithiasis. No evidence for acute cholecystitis.
[2018-05-11] MEDS: XIFAXAN PO SCH ×2 (15:24→21:48)
[2018-05-11] MEDS: Centrum Liq PO SCH (16:59)
[2018-05-11] MEDS ORDERED: MOTRIN PO ONE (23:22)
[2018-05-12] MEDS ORDERED: LOPRESSOR PO ONE (01:00)
[2018-05-12] MEDS ORDERED: NACL 0.9% 500 ML 500 ML IV SCH (02:00)
[2018-05-12] MEDS: CEPHULAC PO SCH ×3 (06:22→19:06)
[2018-05-12 08:45] LABS: Hematocrit 28.2 % (35.5-45.6); Hemoglobin 8.7 gm/dl (11.8-15.2); Mean Corpuscular HGB Conc 31 % (32-34); Mean Corpuscular Hemoglobin 26 pg (28-32); Mean Corpuscular Volume 82 fl (84-94); Platelet Count 125 K/mm3 (140-440); Red Blood Count 3.43 M/mm3 (3.65-5.03); Red Cell Distribution Width 23.4 % (13.2-15.2)
[2018-05-12 08:54] LABS: INR 1.81 (0.87-1.13)
[2018-05-12 08:56] LABS: Alanine Aminotransferase 23 units/L (7-56); Albumin 2.8 g/dL (3.9-5); BUN/Creatinine Ratio 14; Blood Urea Nitrogen 11 mg/dL (9-20); Calcium 8.3 mg/dL (8.4-10.2); Hemolysis Index 0
[2018-05-12 09:28] LABS: Total Cells Counted 100
[2018-05-12] MEDS: XIFAXAN PO SCH ×2 (09:28→22:44)
[2018-05-12] MEDS: Centrum Liq PO SCH (09:28)
[2018-05-12 09:29] LABS: Anisocytosis 1+; Eosinophils % (Manual) 0 % (0.0-4.3); Platelet Estimate Appears Decreased
--- NOTE | 2018-05-12 10:17 | Gastroenterology Progress Note ---
Assessment and Plan 1.alcoholic cirrhosis 2.hepatic encephalopathy 3.ETOH abuse -afebrile, WBC WNL -INR 1.82, T.adrianna 5.40, AST 71, ALT 23, alk phos 113 -abd U/S showed gallstones (no acute cholecystitis), mild cirrhosis, and fatty infiltration of liver (possible TIPS shunt?) -H/H 8.7/28.2-s/p transfusion 1 unit PRBCs -continue to monitor H/H and transfuse as needed -BM x 1 this am with questionable bloody stool per nursing- rectal with brown/ orange stool -Keep NPO, consider EGD based on progress -ammonia 98-trending down -etiology- hx of cirrhosis 2/2 alcohol (active with polysubstance abuse per family) -clinically, patient is more alert today but remains confused -continue lactulose (goal of 2-3 BMs/day), xifaxan, and MVI -limit sedatives -alcohol cessation -continue to trend labs and supportive care -electrolyte management per primary team -will follow Subjective Date of service: 05/12/18 Principal diagnosis: cirrhosis, hepatic encephalopathy Interval history: Patient w/o acute distress. More alert today but still confused and now agitated in restraints. BM x1 this am with questionable bloody stool per nursing. Objective - Constitutional Vitals: Temp Pulse Resp BP Pulse Ox 97.9 F 91 H 20 152/86 100 05/12/18 08:38 05/12/18 08:38 05/12/18 08:38 05/12/18 08:38 05/12/18 08:38 General appearance: no acute distress, other (confused) - Respiratory Respiratory: bilateral: CTA - Cardiovascular Rhythm: regular Heart Sounds: Present: S1 & S2 - Gastrointestinal General gastrointestinal: Present: soft, non-distended, normal bowel sounds - Neurologic Neurological: disoriented - Labs CBC & Chem 7: 05/12/18 08:23 05/12/18 08:23 Labs: Laboratory Results - last 24 hr 05/11/18 05/12/18 05/12/18 00:51 08:23 08:23 WBC 7.3 RBC 3.43 L Hgb 8.7 L Hct 28.2 L D MCV 82 L MCH 26 L MCHC 31 L RDW 23.4 H Plt Count 125 L [place] % (Auto) Fountain Manager Add Manual Diff Complete Total Counted 100 Seg Neuts % (Manual) 90.0 H Band Neutrophils % 0 Lymphocytes % (Manual) 4.0 L Reactive Lymphs % (Man) 0 Monocytes % (Manual) 5.0 Eosinophils % (Manual) 0 Basophils % (Manual) 1.0 Metamyelocytes % 0 Myelocytes % 0 Promyelocytes % 0 Blast Cells % 0 Nucleated RBC % Not Reportable Seg Neutrophils # Man 6.6 Band Neutrophils # 0.0 Lymphocytes # (Manual) 0.3 L Abs React Lymphs (Man) 0.0 Monocytes # (Manual) 0.4 Eosinophils # (Manual) 0.0 Basophils # (Manual) 0.1 Metamyelocytes # 0.0 Myelocytes # 0.0 Promyelocytes # 0.0 Blast Cells # 0.0 WBC Morphology Not Reportable Hypersegmented Neuts Not Reportable Hyposegmented Neuts Not Reportable Hypogranular Neuts Not Reportable Smudge Cells Not Reportable Toxic Granulation Not Reportable Toxic Vacuolation Not Reportable Dohle Bodies Not Reportable Pelger-Huet Anomaly Not Reportable Amada Rods Not Reportable Platelet Estimate Appears decreased Clumped Platelets Not Reportable Plt Clumps, EDTA Not Reportable Large Platelets Not Reportable Giant Platelets Not Reportable Platelet Satelliting Not Reportable Plt Morphology Comment Not Reportable RBC Morphology Not Reportable Dimorphic RBCs Not Reportable Polychromasia Few Hypochromasia Not Reportable Poikilocytosis Not Reportable Anisocytosis 1+ Microcytosis Not Reportable Macrocytosis Not Reportable Spherocytes Not Reportable Pappenheimer Bodies Not Reportable Sickle Cells Not Reportable Target Cells Not Reportable Tear Drop Cells Not Reportable Ovalocytes Not Reportable Helmet Cells Not Reportable [place] Bodies Not Reportable [place] Rings Not Reportable Elvia Cells Not Reportable Bite Cells Not Reportable Crenated Cell Not Reportable Elliptocytes Not Reportable Acanthocytes (Spur) Not Reportable Rouleaux Not Reportable Hemoglobin C Crystals Not Reportable Schistocytes Not Reportable Malaria parasites Not Reportable Raoul Bodies Not Reportable Hem Pathologist Commnt No PT 22.1 H INR 1.81 H Sodium Potassium Chloride Carbon Dioxide Anion Gap BUN Creatinine Estimated GFR BUN/Creatinine Ratio Glucose Calcium Total Bilirubin AST ALT Alkaline Phosphatase Ammonia Total Protein Albumin Albumin/Globulin Ratio Blood Type B POSITIVE Antibody Screen Negative Crossmatch See Detail 05/12/18 05/12/18 08:23 08:23 WBC RBC Hgb Hct MCV MCH MCHC RDW Plt Count [place] % (Auto) Add Manual Diff Total Counted Seg Neuts % (Manual) Band Neutrophils % Lymphocytes % (Manual) Reactive Lymphs % (Man) Monocytes % (Manual) Eosinophils % (Manual) Basophils % (Manual) Metamyelocytes % Myelocytes % Promyelocytes % Blast Cells % Nucleated RBC % Seg Neutrophils # Man Band Neutrophils # Lymphocytes # (Manual) Abs React Lymphs (Man) Monocytes # (Manual) Eosinophils # (Manual) Basophils # (Manual) Metamyelocytes # Myelocytes # Promyelocytes # Blast Cells # WBC Morphology Hypersegmented Neuts Hyposegmented Neuts Hypogranular Neuts Smudge Cells Toxic Granulation Toxic Vacuolation Dohle Bodies Pelger-Huet Anomaly Amada Rods Platelet Estimate Clumped Platelets Plt Clumps, EDTA Large Platelets Giant Platelets Platelet Satelliting Plt Morphology Comment RBC Morphology Dimorphic RBCs Polychromasia Hypochromasia Poikilocytosis Anisocytosis Microcytosis Macrocytosis Spherocytes Pappenheimer Bodies Sickle Cells Target Cells Tear Drop Cells Ovalocytes Helmet Cells [place] Bodies Raymond Rings [place] Cells Bite Cells Crenated Cell Elliptocytes Acanthocytes (Spur) Rouleaux Hemoglobin C Crystals Schistocytes Malaria parasites Raoul Bodies Hem Pathologist Commnt PT INR Sodium 145 Potassium 3.4 L Chloride 116.8 H Carbon Dioxide 16 L Anion Gap 16 BUN 11 Creatinine 0.8 Estimated GFR > 60 BUN/Creatinine Ratio 14 Glucose 120 H Calcium 8.3 L Total Bilirubin 5.40 H AST 71 H ALT 23 Alkaline Phosphatase 113 Ammonia 98.0 H Total Protein 8.1 Albumin 2.8 L Albumin/Globulin Ratio 0.5 Blood Type Antibody Screen Crossmatch
[2018-05-12 12:26] LABS: Hematocrit 24.7 % (35.5-45.6); Hemoglobin 7.6 gm/dl (11.8-15.2)
[2018-05-13] MEDS: CEPHULAC PO SCH ×4 (05:01→18:07)
[2018-05-13 10:00] LABS: Hematocrit 25.5 % (35.5-45.6); Hemoglobin 8.1 gm/dl (11.8-15.2); Mean Corpuscular HGB Conc 32 % (32-34); Mean Corpuscular Volume 81 fl (84-94); Platelet Count 110 K/mm3 (140-440); Red Blood Count 3.16 M/mm3 (3.65-5.03)
[2018-05-13 10:00] LABS: Alanine Aminotransferase 23 units/L (7-56); Albumin 2.6 g/dL (3.9-5); BUN/Creatinine Ratio 14; Blood Urea Nitrogen 10 mg/dL (9-20); Calcium 8.1 mg/dL (8.4-10.2); Hemolysis Index 11
[2018-05-13 10:01] LABS: Mean Corpuscular Hemoglobin 26 pg (28-32); Red Cell Distribution Width 23.2 % (13.2-15.2)
[2018-05-13 10:47] LABS: Anisocytosis 2+; Basophils % (Manual) 0 % (0.0-1.8); Total Cells Counted 100
[2018-05-13 10:48] LABS: Helmet Cells Rare; Hypochromasia Few; Large Platelets Rare; Ovalocytes 1+; Platelet Estimate Appears Decreased; Tear Drop Cells Few
[2018-05-13] MEDS: XIFAXAN PO SCH ×2 (11:01→22:34)
[2018-05-13] MEDS: Centrum Liq PO SCH (11:01)
--- NOTE | 2018-05-13 12:27 | Gastroenterology Progress Note ---
Assessment and Plan 1.alcoholic cirrhosis 2.hepatic encephalopathy 3.ETOH abuse -afebrile, WBC WNL -INR and LFTs-stable -abd U/S showed gallstones (no acute cholecystitis), mild cirrhosis, and fatty infiltration of liver (possible TIPS shunt?) -H/H 8.1/25.5-stable- no active signs of bleeding (s/p TIPS which should prevent gross bleeding, if patent) -continue to monitor H/H and transfuse as needed -etiology- hx of cirrhosis 2/2 alcohol (active with polysubstance abuse per family) -clinically, patient is stable with mentation significantly improved. Now Alert and oriented. Denies abd pain or N/V. -okay to start on clear liquids- advance as tolerated -continue lactulose (goal of 2-3 BMs/day), xifaxan, and MVI -limit sedatives -alcohol cessation discussed/encourage with patient -continue to trend labs and supportive care -if tolerates PO and labs stable in am, okay to d/c per GI standpoint with follow up clinic appt Subjective Date of service: 05/13/18 Principal diagnosis: cirrhosis, hepatic encephalopathy Interval history: Patient sitting up in bed this am, noted to be more alert and oriented x 3. No acute distress or active signs of bleeding. Denies abd pain or N/V. Objective - Constitutional Vitals: Temp Pulse Resp BP Pulse Ox 98.0 F 97 H 20 150/62 100 05/13/18 08:09 05/13/18 08:09 05/13/18 08:09 05/13/18 08:09 05/13/18 08:09 General appearance: no acute distress - Respiratory Respiratory: bilateral: CTA - Cardiovascular Rhythm: regular Heart Sounds: Present: S1 & S2 - Gastrointestinal General gastrointestinal: Present: soft, non-tender, non-distended, normal bowel sounds - Neurologic Neurological: alert and oriented x3 - Labs CBC & Chem 7: 05/13/18 09:43 05/13/18 09:07 Labs: Laboratory Results - last 24 hr 05/11/18 05/12/18 05/13/18 00:51 12:05 09:07 WBC RBC Hgb 7.6 L Hct 24.7 L MCV MCH MCHC RDW Plt Count [place] % (Auto) Add Manual Diff Total Counted Seg Neuts % (Manual) Band Neutrophils % Lymphocytes % (Manual) Reactive Lymphs % (Man) Monocytes % (Manual) Eosinophils % (Manual) Basophils % (Manual) Metamyelocytes % Myelocytes % Promyelocytes % Blast Cells % Nucleated RBC % Seg Neutrophils # Man Band Neutrophils # Lymphocytes # (Manual) Abs React Lymphs (Man) Monocytes # (Manual) Eosinophils # (Manual) Basophils # (Manual) Metamyelocytes # Myelocytes # Promyelocytes # Blast Cells # WBC Morphology Hypersegmented Neuts Hyposegmented Neuts Hypogranular Neuts Smudge Cells Toxic Granulation Toxic Vacuolation Dohle Bodies Pelger-Huet Anomaly Amada Rods Platelet Estimate Clumped Platelets Plt Clumps, EDTA Large Platelets Giant Platelets Platelet Satelliting Plt Morphology Comment RBC Morphology Dimorphic RBCs Polychromasia Hypochromasia Poikilocytosis Anisocytosis Microcytosis Macrocytosis Spherocytes Pappenheimer Bodies Sickle Cells Target Cells Tear Drop Cells Ovalocytes Helmet Cells [place]rí[place] Bodies Hye Rings Elvia Cells Bite Cells Crenated Cell Elliptocytes Acanthocytes (Spur) Rouleaux Hemoglobin C Crystals Schistocytes Malaria parasites Raoul Bodies Hem Pathologist Commnt Sodium 143 Potassium 3.4 L Chloride 114.0 H Carbon Dioxide 17 L Anion Gap 15 BUN 10 Creatinine 0.7 L Estimated GFR > 60 BUN/Creatinine Ratio 14 Glucose 89 Calcium 8.1 L Total Bilirubin 5.30 H AST 66 H ALT 23 Alkaline Phosphatase 106 Ammonia Total Protein 7.2 Albumin 2.6 L Albumin/Globulin Ratio 0.6 Blood Type B POSITIVE Antibody Screen Negative Crossmatch See Detail 05/13/18 05/13/18 09:35 09:43 WBC 7.9 RBC 3.16 L Hgb 8.1 L Hct 25.5 L MCV 81 L MCH 26 L MCHC 32 RDW 23.2 H Plt Count 110 L [place] % (Auto) Agricultural Sciences Professor Add Manual Diff Complete Total Counted 100 Seg Neuts % (Manual) 84.0 H Band Neutrophils % 0 Lymphocytes % (Manual) 11.0 L Reactive Lymphs % (Man) 0 Monocytes % (Manual) 4.0 Eosinophils % (Manual) 1.0 Basophils % (Manual) 0 Metamyelocytes % 0 Myelocytes % 0 Promyelocytes % 0 Blast Cells % 0 Nucleated RBC % 1.0 H Seg Neutrophils # Man 6.6 Band Neutrophils # 0.0 Lymphocytes # (Manual) 0.9 L Abs React Lymphs (Man) 0.0 Monocytes # (Manual) 0.3 Eosinophils # (Manual) 0.1 Basophils # (Manual) 0.0 Metamyelocytes # 0.0 Myelocytes # 0.0 Promyelocytes # 0.0 Blast Cells # 0.0 WBC Morphology Not Reportable Hypersegmented Neuts Not Reportable Hyposegmented Neuts Not Reportable Hypogranular Neuts Not Reportable Smudge Cells Not Reportable Toxic Granulation Not Reportable Toxic Vacuolation Not Reportable Dohle Bodies Not Reportable Pelger-Huet Anomaly Not Reportable Amada Rods Not Reportable Platelet Estimate Appears decreased Clumped Platelets Not Reportable Plt Clumps, EDTA Not Reportable Large Platelets Rare Giant Platelets Not Reportable Platelet Satelliting Not Reportable Plt Morphology Comment Not Reportable RBC Morphology Not Reportable Dimorphic RBCs Not Reportable Polychromasia 1+ Hypochromasia Few Poikilocytosis Not Reportable Anisocytosis 2+ Microcytosis Rare Macrocytosis Not Reportable Spherocytes Not Reportable Pappenheimer Bodies Not Reportable Sickle Cells Not Reportable Target Cells Not Reportable Tear Drop Cells Few Ovalocytes 1+ Helmet Cells Rare [place]rí[place] Bodies Not Reportable Hye Rings Not Reportable [place] Cells Not Reportable Bite Cells Not Reportable Crenated Cell Not Reportable Elliptocytes Rare Acanthocytes (Spur) Not Reportable Rouleaux Not Reportable Hemoglobin C Crystals Not Reportable Schistocytes Not Reportable Malaria parasites Not Reportable Raoul Bodies Not Reportable Hem Pathologist Commnt No Sodium Potassium Chloride Carbon Dioxide Anion Gap BUN Creatinine Estimated GFR BUN/Creatinine Ratio Glucose Calcium Total Bilirubin AST ALT Alkaline Phosphatase Ammonia 111.0 H Total Protein Albumin Albumin/Globulin Ratio Blood Type Antibody Screen Crossmatch
[2018-05-13 13:16] LABS: INR 1.78 (0.87-1.13)
--- NOTE | 2018-05-13 17:46 | Progress Note ---
Assessment and Plan - Patient Problems (1) Alcoholic cirrhosis Current Visit: Yes Status: Acute Plan to address problem: Cont Aldactone (2) Hepatic encephalopathy Current Visit: Yes Status: Acute Plan to address problem: Cont Lactulose On Xifaxan NG tube to be taken out (3) Anemia Current Visit: Yes Status: Chronic Qualifiers: Anemia type: iron deficiency Plan to address problem: Anemia w/u (4) Alcohol withdrawal Current Visit: Yes Status: Chronic Qualifiers: Complication of substance-induced condition: uncomplicated Qualified Code(s ): F10.230 - Alcohol dependence with withdrawal, uncomplicated Plan to address problem: CiWA protocol (5) DVT prophylaxis Current Visit: Yes Status: Acute Plan to address problem: On SCD,s Subjective Date of service: 05/12/18 Principal diagnosis: cirrhosis, hepatic encephalopathy Interval history: More alert and oriented Objective - Constitutional Vitals: Vital Signs - 12hr 05/13/18 05/13/18 05/13/18 08:09 11:33 16:07 Temperature 98.0 F 98.1 F 98.6 F Pulse Rate 97 H 81 94 H Respiratory 20 20 18 Rate Blood Pressure 150/62 140/63 139/70 O2 Sat by Pulse 100 100 100 Oximetry General appearance: Present: no acute distress, well-nourished - EENT Eyes: PERRL, EOM intact ENT: hearing intact, clear oral mucosa Ears: bilateral: normal - Neck Neck: supple, normal ROM - Respiratory Respiratory effort: normal Respiratory: bilateral: CTA - Breasts Breasts: normal - Cardiovascular Heart rate: 80 Rhythm: regular Heart Sounds: Present: S1 & S2. Absent: gallop, rub Extremities: pulses intact, No edema, normal color, Full ROM - Gastrointestinal General gastrointestinal: Present: soft, non-tender, non-distended, normal bowel sounds - Genitourinary Male genitourinary: normal - Integumentary Integumentary: clear, warm, dry - Musculoskeletal Musculoskeletal: generalized weakness - Neurologic Neurologic: moves all extremities - Psychiatric Psychiatric: memory intact, appropriate mood/affect, intact judgment & insight - Labs CBC & Chem 7: 05/13/18 09:43 05/13/18 09:07 Labs: Abnormal lab results 05/13/18 05/13/18 05/13/18 Range/Units 09:07 09:35 09:43 RBC 3.16 L (3.65-5.03) M/mm3 Hgb 8.1 L (11.8-15.2) gm/dl Hct 25.5 L (35.5-45.6) % MCV 81 L (84-94) fl MCH 26 L (28-32) pg RDW 23.2 H (13.2-15.2) % Plt Count 110 L (140-440) K/mm3 Seg Neuts % (Manual) 84.0 H (40.0-70.0) % Lymphocytes % (Manual) 11.0 L (13.4-35.0) % Nucleated RBC % 1.0 H (0.0-0.9) % Lymphocytes # (Manual) 0.9 L (1.2-5.4) K/mm3 PT (12.2-14.9) Sec. INR (0.87-1.13) Potassium 3.4 L (3.6-5.0) mmol/L Chloride 114.0 H (98-107) mmol/L Carbon Dioxide 17 L (22-30) mmol/L Creatinine 0.7 L (0.8-1.5) mg/dL Calcium 8.1 L (8.4-10.2) mg/dL Total Bilirubin 5.30 H (0.1-1.2) mg/dL AST 66 H (5-40) units/L Ammonia 111.0 H (25-60) umol/L Albumin 2.6 L (3.9-5) g/dL 05/13/18 Range/Units 11:12 RBC (3.65-5.03) M/mm3 Hgb (11.8-15.2) gm/dl Hct (35.5-45.6) % MCV (84-94) fl MCH (28-32) pg RDW (13.2-15.2) % Plt Count (140-440) K/mm3 Seg Neuts % (Manual) (40.0-70.0) % Lymphocytes % (Manual) (13.4-35.0) % Nucleated RBC % (0.0-0.9) % Lymphocytes # (Manual) (1.2-5.4) K/mm3 PT 21.8 H (12.2-14.9) Sec. INR 1.78 H (0.87-1.13) Potassium (3.6-5.0) mmol/L Chloride (98-107) mmol/L Carbon Dioxide (22-30) mmol/L Creatinine (0.8-1.5) mg/dL Calcium (8.4-10.2) mg/dL Total Bilirubin (0.1-1.2) mg/dL AST (5-40) units/L Ammonia (25-60) umol/L Albumin (3.9-5) g/dL
--- NOTE | 2018-05-13 17:59 | Progress Note ---
Assessment and Plan - Patient Problems (1) Alcoholic cirrhosis Current Visit: Yes Status: Acute Plan to address problem: Cont Aldactone (2) Hepatic encephalopathy Current Visit: Yes Status: Acute Plan to address problem: Cont Lactulose On Xifaxan NG tube to be taken out (3) Anemia Current Visit: Yes Status: Chronic Qualifiers: Anemia type: iron deficiency Plan to address problem: Anemia w/u (4) Alcohol withdrawal Current Visit: Yes Status: Chronic Qualifiers: Complication of substance-induced condition: uncomplicated Qualified Code(s ): F10.230 - Alcohol dependence with withdrawal, uncomplicated Plan to address problem: CiWA protocol (5) DVT prophylaxis Current Visit: Yes Status: Acute Plan to address problem: On SCD,s Subjective Date of service: 05/13/18 Principal diagnosis: cirrhosis, hepatic encephalopathy Interval history: More alert and oriented Objective - Constitutional Vitals: Vital Signs - 12hr 05/13/18 05/13/18 05/13/18 08:09 11:33 16:07 Temperature 98.0 F 98.1 F 98.6 F Pulse Rate 97 H 81 94 H Respiratory 20 20 18 Rate Blood Pressure 150/62 140/63 139/70 O2 Sat by Pulse 100 100 100 Oximetry General appearance: Present: no acute distress, well-nourished - EENT Eyes: PERRL, EOM intact ENT: hearing intact, clear oral mucosa Ears: bilateral: normal - Neck Neck: supple, normal ROM - Respiratory Respiratory effort: normal Respiratory: bilateral: CTA - Breasts Breasts: normal - Cardiovascular Rhythm: regular Heart Sounds: Present: S1 & S2. Absent: gallop, rub Extremities: pulses intact, No edema, normal color, Full ROM - Gastrointestinal General gastrointestinal: Present: soft, non-tender, non-distended, normal bowel sounds - Genitourinary Male genitourinary: normal - Integumentary Integumentary: clear, warm, dry - Musculoskeletal Musculoskeletal: 1, strength equal bilaterally - Neurologic Neurologic: moves all extremities - Psychiatric Psychiatric: memory intact, appropriate mood/affect, intact judgment & insight - Labs CBC & Chem 7: 05/13/18 09:43 05/13/18 09:07 Labs: Abnormal lab results 05/13/18 05/13/18 05/13/18 Range/Units 09:07 09:35 09:43 RBC 3.16 L (3.65-5.03) M/mm3 Hgb 8.1 L (11.8-15.2) gm/dl Hct 25.5 L (35.5-45.6) % MCV 81 L (84-94) fl MCH 26 L (28-32) pg RDW 23.2 H (13.2-15.2) % Plt Count 110 L (140-440) K/mm3 Seg Neuts % (Manual) 84.0 H (40.0-70.0) % Lymphocytes % (Manual) 11.0 L (13.4-35.0) % Nucleated RBC % 1.0 H (0.0-0.9) % Lymphocytes # (Manual) 0.9 L (1.2-5.4) K/mm3 PT (12.2-14.9) Sec. INR (0.87-1.13) Potassium 3.4 L (3.6-5.0) mmol/L Chloride 114.0 H (98-107) mmol/L Carbon Dioxide 17 L (22-30) mmol/L Creatinine 0.7 L (0.8-1.5) mg/dL Calcium 8.1 L (8.4-10.2) mg/dL Total Bilirubin 5.30 H (0.1-1.2) mg/dL AST 66 H (5-40) units/L Ammonia 111.0 H (25-60) umol/L Albumin 2.6 L (3.9-5) g/dL 05/13/18 Range/Units 11:12 RBC (3.65-5.03) M/mm3 Hgb (11.8-15.2) gm/dl Hct (35.5-45.6) % MCV (84-94) fl MCH (28-32) pg RDW (13.2-15.2) % Plt Count (140-440) K/mm3 Seg Neuts % (Manual) (40.0-70.0) % Lymphocytes % (Manual) (13.4-35.0) % Nucleated RBC % (0.0-0.9) % Lymphocytes # (Manual) (1.2-5.4) K/mm3 PT 21.8 H (12.2-14.9) Sec. INR 1.78 H (0.87-1.13) Potassium (3.6-5.0) mmol/L Chloride (98-107) mmol/L Carbon Dioxide (22-30) mmol/L Creatinine (0.8-1.5) mg/dL Calcium (8.4-10.2) mg/dL Total Bilirubin (0.1-1.2) mg/dL AST (5-40) units/L Ammonia (25-60) umol/L Albumin (3.9-5) g/dL
[2018-05-13 21:40] LABS: % Iron Saturation 9.31 %
[2018-05-13] MEDS ORDERED: CEPHULAC PO SCH (22:00)
[2018-05-14 05:39] LABS: Hematocrit 22.4 % (35.5-45.6); Hemoglobin 7.4 gm/dl (11.8-15.2); Mean Corpuscular HGB Conc 33 % (32-34); Mean Corpuscular Hemoglobin 26 pg (28-32); Mean Corpuscular Volume 80 fl (84-94); Platelet Count 108 K/mm3 (140-440); Red Blood Count 2.79 M/mm3 (3.65-5.03)
[2018-05-14 05:40] LABS: Red Cell Distribution Width 23.3 % (13.2-15.2)
[2018-05-14 06:06] LABS: Alanine Aminotransferase 23 units/L (7-56); Albumin 2.2 g/dL (3.9-5); BUN/Creatinine Ratio 11; Blood Urea Nitrogen 8 mg/dL (9-20); Calcium 7.6 mg/dL (8.4-10.2); Hemolysis Index 2
[2018-05-14 07:17] VITALS: BP 127/66
[2018-05-14 08:30] LABS: Basophils % (Manual) 0 % (0.0-1.8); Total Cells Counted 100
[2018-05-14 08:31] LABS: Anisocytosis 2+; Platelet Estimate Consistent w Auto
[2018-05-14 08:32] LABS: Hypochromasia 1+; Ovalocytes 1+; Target Cells Few
--- NOTE | 2018-05-14 11:23 | Gastroenterology Progress Note ---
Assessment and Plan 1.alcoholic cirrhosis 2.hepatic encephalopathy 3.ETOH abuse -afebrile, WBC WNL, TB with no significant change -INR and LFTs-stable -abd U/S showed gallstones (no acute cholecystitis), mild cirrhosis, and fatty infiltration of liver (possible TIPS shunt?) -H/H 7.4/22.4 (s/p TIPS which should prevent gross bleeding, if patent) -continue to monitor H/H and transfuse as needed -etiology- hx of cirrhosis 2/2 alcohol (active with polysubstance abuse per family) -clinically, patient is stable with mentation significantly improved. Now Alert and oriented. Denies abd pain or N/V. -Tolerating regular diet well. -continue lactulose with goal of 2-3 BM per day. Pt can be discharged on lactulose. -ammonia improved- 84. -Platelets have decreased - 104 -alcohol cessation discussed/encourage with patient -Sister at bedside reports pt is from [place]. He has an appt on 05/20/18 with a Cashiers Supervisor. I have provided our office information for follow up or medical record request. -Ok to DC per GI standpoint. Subjective Date of service: 05/14/18 Principal diagnosis: cirrhosis, hepatic encephalopathy Interval history: pt is awake and alert, sister at bedside. Tolerating diet well. Objective - Constitutional Vitals: Temp Pulse Resp BP Pulse Ox 100.0 F H 90 20 127/66 99 05/14/18 05:07 05/14/18 05:07 05/14/18 05:07 05/14/18 05:07 05/14/18 05:07 General appearance: no acute distress - EENT Eyes: EOM intact ENT: hearing intact - Neck Neck: supple - Gastrointestinal General gastrointestinal: Present: soft, non-tender - Integumentary Integumentary: Present: warm, dry - Labs CBC & Chem 7: 05/14/18 05:25 05/14/18 05:25 Labs: Laboratory Results - last 24 hr 05/12/18 05/13/18 05/13/18 08:23 11:12 20:07 WBC RBC Hgb Hct MCV MCH MCHC RDW Plt Count [place] % (Auto) Add Manual Diff Total Counted Seg Neuts % (Manual) Band Neutrophils % Lymphocytes % (Manual) Reactive Lymphs % (Man) Monocytes % (Manual) Eosinophils % (Manual) Basophils % (Manual) Metamyelocytes % Myelocytes % Promyelocytes % Blast Cells % Nucleated RBC % Seg Neutrophils # Man Band Neutrophils # Lymphocytes # (Manual) Abs React Lymphs (Man) Monocytes # (Manual) Eosinophils # (Manual) Basophils # (Manual) Metamyelocytes # Myelocytes # Promyelocytes # Blast Cells # WBC Morphology Hypersegmented Neuts Hyposegmented Neuts Hypogranular Neuts Smudge Cells Toxic Granulation Toxic Vacuolation Dohle Bodies Pelger-Huet Anomaly Amada Rods Platelet Estimate Clumped Platelets Plt Clumps, EDTA Large Platelets Giant Platelets Platelet Satelliting Plt Morphology Comment RBC Morphology Dimorphic RBCs Polychromasia Hypochromasia Poikilocytosis Anisocytosis Microcytosis Macrocytosis Spherocytes Pappenheimer Bodies Sickle Cells Target Cells Tear Drop Cells Ovalocytes Helmet Cells [place] Bodies [place] Rings Elvia Cells Bite Cells Crenated Cell Elliptocytes Acanthocytes (Spur) Rouleaux Hemoglobin C Crystals Schistocytes Malaria parasites Raoul Bodies Hem Pathologist Commnt PT 21.8 H INR 1.78 H Sodium Potassium Chloride Carbon Dioxide Anion Gap BUN Creatinine Estimated GFR BUN/Creatinine Ratio Glucose Calcium Iron 19 L TIBC 204 L % Saturation 9.31 Transferrin 184 Total Bilirubin AST ALT Alkaline Phosphatase Ammonia Total Protein Albumin Albumin/Globulin Ratio Vitamin B12 Hep B Core Total Ab Nonreactive 05/13/18 05/14/18 05/14/18 20:07 05:25 05:25 WBC 6.0 RBC 2.79 L Hgb 7.4 L Hct 22.4 L MCV 80 L MCH 26 L MCHC 33 RDW 23.3 H Plt Count 108 L [place] % (Auto) Financial Compliance Examiner Add Manual Diff Complete Total Counted 100 Seg Neuts % (Manual) 80.0 H Band Neutrophils % 0 Lymphocytes % (Manual) 12.0 L Reactive Lymphs % (Man) 0 Monocytes % (Manual) 3.0 Eosinophils % (Manual) 5.0 H Basophils % (Manual) 0 Metamyelocytes % 0 Myelocytes % 0 Promyelocytes % 0 Blast Cells % 0 Nucleated RBC % Not Reportable Seg Neutrophils # Man 4.8 Band Neutrophils # 0.0 Lymphocytes # (Manual) 0.7 L Abs React Lymphs (Man) 0.0 Monocytes # (Manual) 0.2 Eosinophils # (Manual) 0.3 Basophils # (Manual) 0.0 Metamyelocytes # 0.0 Myelocytes # 0.0 Promyelocytes # 0.0 Blast Cells # 0.0 WBC Morphology Not Reportable Hypersegmented Neuts Not Reportable Hyposegmented Neuts Not Reportable Hypogranular Neuts Not Reportable Smudge Cells Not Reportable Toxic Granulation Not Reportable Toxic Vacuolation Not Reportable Dohle Bodies Not Reportable Pelger-Huet Anomaly Not Reportable Amada Rods Not Reportable Platelet Estimate Consistent w auto Clumped Platelets Not Reportable Plt Clumps, EDTA Not Reportable Large Platelets Not Reportable Giant Platelets Not Reportable Platelet Satelliting Not Reportable Plt Morphology Comment Not Reportable RBC Morphology Not Reportable Dimorphic RBCs Not Reportable Polychromasia Not Reportable Hypochromasia 1+ Poikilocytosis Not Reportable Anisocytosis 2+ Microcytosis Few Macrocytosis Not Reportable Spherocytes Not Reportable Pappenheimer Bodies Not Reportable Sickle Cells Not Reportable Target Cells Few Tear Drop Cells Not Reportable Ovalocytes 1+ Helmet Cells Not Reportable [place]rí[place] Bodies Not Reportable [place] Rings Not Reportable [place] Cells Not Reportable Bite Cells Not Reportable Crenated Cell Not Reportable Elliptocytes Few Acanthocytes (Spur) Not Reportable Rouleaux Not Reportable Hemoglobin C Crystals Not Reportable Schistocytes Not Reportable Malaria parasites Not Reportable Raoul Bodies Not Reportable Hem Pathologist Commnt No PT INR Sodium 140 Potassium 3.3 L Chloride 108.4 H Carbon Dioxide 19 L Anion Gap 16 BUN 8 L Creatinine 0.7 L Estimated GFR > 60 BUN/Creatinine Ratio 11 Glucose 90 Calcium 7.6 L Iron TIBC % Saturation Transferrin Total Bilirubin 4.30 H AST 56 H ALT 23 Alkaline Phosphatase 89 Ammonia Total Protein 6.6 Albumin 2.2 L Albumin/Globulin Ratio 0.5 Vitamin B12 1834 H Hep B Core Total Ab 05/14/18 05:25 WBC RBC Hgb Hct MCV MCH MCHC RDW Plt Count [place] % (Auto) Add Manual Diff Total Counted Seg Neuts % (Manual) Band Neutrophils % Lymphocytes % (Manual) Reactive Lymphs % (Man) Monocytes % (Manual) Eosinophils % (Manual) Basophils % (Manual) Metamyelocytes % Myelocytes % Promyelocytes % Blast Cells % Nucleated RBC % Seg Neutrophils # Man Band Neutrophils # Lymphocytes # (Manual) Abs React Lymphs (Man) Monocytes # (Manual) Eosinophils # (Manual) Basophils # (Manual) Metamyelocytes # Myelocytes # Promyelocytes # Blast Cells # WBC Morphology Hypersegmented Neuts Hyposegmented Neuts Hypogranular Neuts Smudge Cells Toxic Granulation Toxic Vacuolation Dohle Bodies Pelger-Huet Anomaly Amada Rods Platelet Estimate Clumped Platelets Plt Clumps, EDTA Large Platelets Giant Platelets Platelet Satelliting Plt Morphology Comment RBC Morphology Dimorphic RBCs Polychromasia Hypochromasia Poikilocytosis Anisocytosis Microcytosis Macrocytosis Spherocytes Pappenheimer Bodies Sickle Cells Target Cells Tear Drop Cells Ovalocytes Helmet Cells [place] Bodies [place] Rings [place] Cells Bite Cells Crenated Cell Elliptocytes Acanthocytes (Spur) Rouleaux Hemoglobin C Crystals Schistocytes Malaria parasites Raoul Bodies Hem Pathologist Commnt PT INR Sodium Potassium Chloride Carbon Dioxide Anion Gap BUN Creatinine Estimated GFR BUN/Creatinine Ratio Glucose Calcium Iron TIBC % Saturation Transferrin Total Bilirubin AST ALT Alkaline Phosphatase Ammonia 84.0 H Total Protein Albumin Albumin/Globulin Ratio Vitamin B12 Hep B Core Total Ab
[2018-05-14] MEDS: Centrum Liq PO SCH (11:53)
[2018-05-14] MEDS: XIFAXAN PO SCH (11:54)
--- NOTE | 2018-05-14 17:46 | Discharge Summary ---
Providers - Providers Date of Admission: 05/11/18 00:25 Date of discharge: 05/14/18 Attending physician: RHODA PATHAK 05/11/18 06:00 Consult to Physician [CONS] Routine Comment: Consulting Provider: TINO HA Physician Instructions: Reason For Exam: CIRRHOSIS OF THE LIVER WITH HEPATIC ENCEPHALOPATHY Primary care physician: METAL PAINTER Hospitalization Condition: Stable Hospital course: Assessment and Plan 1.alcoholic cirrhosis 2.hepatic encephalopathy 3.ETOH abuse -afebrile, WBC WNL, TB with no significant change -INR and LFTs-stable -abd U/S showed gallstones (no acute cholecystitis), mild cirrhosis, and fatty infiltration of liver (possible TIPS shunt?) -H/H 7.4/22.4 (s/p TIPS which should prevent gross bleeding, if patent) -continue to monitor H/H and transfuse as needed -etiology- hx of cirrhosis 2/2 alcohol (active with polysubstance abuse per family) -clinically, patient is stable with mentation significantly improved. Now Alert and oriented. Denies abd pain or N/V. -Tolerating regular diet well. -continue lactulose with goal of 2-3 BM per day. Pt can be discharged on lactulose. -ammonia improved- 84. -Platelets have decreased - 104 -alcohol cessation discussed/encourage with patient -Sister at bedside reports pt is from [place]. He has an appt on 05/20/18 with a Chairman President And Chief Executive Officer. I have provided our office information for follow up or medical record request. -Ok to DC per GI standpoint. Subjective Date of service: 05/14/18 Principal diagnosis: cirrhosis, hepatic encephalopathy Interval history: pt is awake and alert, sister at bedside. Tolerating diet well. Disposition: DC-01 TO HOME OR SELFCARE - Discharge Diagnoses (1) Alcoholic cirrhosis Status: Acute (2) Hepatic encephalopathy Status: Acute (3) Anemia Status: Chronic Qualifiers: Anemia type: iron deficiency (4) Alcohol withdrawal Status: Chronic Qualifiers: Complication of substance-induced condition: uncomplicated Qualified Code(s ): F10.230 - Alcohol dependence with withdrawal, uncomplicated (5) DVT prophylaxis Status: Acute Core Measure Documentation - Palliative Care Palliative Care/ Comfort Measures: Not Applicable - Core Measures Any of the following diagnoses?: none Exam - Constitutional Vitals: Temp Pulse Resp BP Pulse Ox 100.0 F H 90 20 127/66 99 05/14/18 05:07 05/14/18 05:07 05/14/18 05:07 05/14/18 05:07 05/14/18 05:07 General appearance: Present: no acute distress, well-nourished - EENT Eyes: Present: PERRL ENT: hearing intact, clear oral mucosa - Neck Neck: Present: supple, normal ROM - Respiratory Respiratory effort: normal Respiratory: bilateral: CTA - Cardiovascular Heart rate: 80 Rhythm: regular Heart Sounds: Present: S1 & S2. Absent: rub, click - Extremities Extremities: no ischemia, pulses intact, pulses symmetrical, No edema Peripheral Pulses: within normal limits - Abdominal General gastrointestinal: Present: soft, non-tender, non-distended, normal bowel sounds Male genitourinary: Present: normal - Rectal Rectal Exam: deferred - Integumentary Integumentary: Present: clear, warm, dry - Musculoskeletal Musculoskeletal: gait normal, strength equal bilaterally - Psychiatric Psychiatric: appropriate mood/affect, intact judgment & insight - Neurologic Neurologic: CNII-XII intact, moves all extremities - Allied Health Allied health notes reviewed: nursing, case management Plan Activity: no restrictions Diet: regular Follow up with: FISH SPEAR MD [Primary Care Provider] - 7 Days PAUL HARRIS MD [Staff Physician] - 7 Days
== END 2018-05-14 19:00 | disposition home or self-care (01) | DRG 433 ==
LOC: ED 19:44 → 4A 05-11 00:25 → 3A 05-13 23:42
PROVIDERS: ADMIT Internal Medicine; ATTEND Internal Medicine
PROC: 30233N1 Transfusion of Nonautologous Red Blood Cells into Peripheral Vein, Percutaneous Approach (ICD-10-PCS; principal; 2018-05-11)
DX: K70.30 Alcoholic cirrhosis of liver without ascites (principal); F10.239 Alcohol dependence with withdrawal, unspecified; E87.2 Acidosis; K72.90 Hepatic failure, unspecified without coma; Y90.9 Presence of alcohol in blood, level not specified; F14.10 Cocaine abuse, uncomplicated; D64.9 Anemia, unspecified; I10 Essential (primary) hypertension
CPT/HCPCS: 36415; 70450; 71045; 76700; 80053; 80307; 80320; 81001; 82140; 82150; 82550; 82607; 82747; 82962; 83550; 83690; 84443; 84484; 85007; 85014; 85018; 85025; 85610; 85730; 86705; 86706; 86803; 86850; 86900; 86901; 86920; 87040; 93005; 93010; 96365; 96366; 96372; G0480; J0692; J1630; J1940; J2060; J3370; J3411; J7030; J7040; P9016